=== PATIENT | female | born 1950 | race Caucasian/White ===

== ENCOUNTER → 2016-08-22 | Outpatient (CLI) | payer OTHER, MEDICARE ==
[2016-08-22 13:38] LABS: BLOOD UREA NITROGEN 15 mg/dl (7-18); CALCIUM 8.9 mg/dl (8.5-10.1); CARBON DIOXIDE 24 mmol/L (21-32); CHLORIDE 104 mmol/L (98-107); CREATININE 0.62 mg/dl (0.60-1.20); GLUCOSE 143 mg/dl (70-99); POTASSIUM 3.7 mmol/L (3.5-5.1); SODIUM 139 mmol/L (136-145)
[2016-08-22 13:39] LABS: PHOSPHORUS 3.3 mg/dl (2.5-4.9)
[2016-08-22 14:01] LABS: ESTIMATED AVERAGE GLUCOSE 148 mg/dl; HA1C FLAG Normal (Normal)
== END | disposition home or self-care (01) ==
LOC: C.LABMFLN 08:54
PROVIDERS: ATTEND Family Medicine
DX: E11.9 Type 2 diabetes mellitus without complications (principal)

== ENCOUNTER → 2016-09-05 | Outpatient (CLI) | payer OTHER, MEDICARE | END | disposition home or self-care (01) | LOC: C.LABMFLN 08:23 | PROVIDERS: ATTEND Family Medicine | DX: R82.90 Unspecified abnormal findings in urine (principal) ==

== ENCOUNTER → 2016-10-31 | Outpatient (CLI) | payer OTHER, MEDICARE | END | disposition home or self-care (01) | LOC: C.LABSPEC 12:11 | PROVIDERS: ATTEND Obstetrics & Gynecology | DX: N76.0 Acute vaginitis (principal) ==

== ENCOUNTER → 2017-01-02 | Outpatient (CLI) | payer OTHER, MEDICARE ==
[2017-01-02 13:35] LABS: ALT/SGPT 29 U/L (12-78); BLOOD UREA NITROGEN 15 mg/dl (7-18); CALCIUM 8.9 mg/dl (8.5-10.1); CARBON DIOXIDE 23 mmol/L (21-32); CHLORIDE 108 mmol/L (98-107); CHOLESTEROL 160 mg/dl (0-200); CREATININE 0.69 mg/dl (0.60-1.20); GLUCOSE 153 mg/dl (70-99); POTASSIUM 3.8 mmol/L (3.5-5.1); SODIUM 139 mmol/L (136-145); TRIGLYCERIDES 202 mg/dl (0-150); VERY LOW DENSITY LIPOPROT CALC 40 mg/dl
[2017-01-02 13:39] LABS: ALB/GLOB RATIO 1.1 (0.9-2); ALKALINE PHOSPHATASE 83 U/L (45-117); AST/SGOT 16 U/L (15-37); CHOLESTEROL/HDL RATIO 3.1; HDL CHOLESTEROL 51 mg/dl; LDL CHOLESTEROL CALCULATED 69 mg/dl
[2017-01-02 13:52] LABS: ESTIMATED AVERAGE GLUCOSE 171 mg/dl; HA1C FLAG Normal (Normal)
[2017-01-02 13:58] LABS: RATIO 12.7 mcg/mg (0-30.0)
== END | disposition home or self-care (01) ==
LOC: C.LABMFLN 08:46
PROVIDERS: ATTEND Family Medicine
DX: E11.9 Type 2 diabetes mellitus without complications (principal); E78.5 Hyperlipidemia, unspecified

== ENCOUNTER → 2017-01-03 | Outpatient (CLI) | payer OTHER, MEDICARE | END | disposition home or self-care (01) | LOC: C.LABSPEC 17:54 | PROVIDERS: ATTEND Physician Assistant | DX: N76.0 Acute vaginitis (principal) ==

== ENCOUNTER → 2017-01-24 | Outpatient (CLI) | payer OTHER, MEDICARE | END | disposition home or self-care (01) | LOC: C.LABMFLN 14:53 | PROVIDERS: ATTEND Family Medicine | DX: R35.0 Frequency of micturition (principal) ==

== ENCOUNTER → 2017-02-06 | Outpatient (CLI) | payer OTHER, MEDICARE ==
[2017-02-06 18:29] LABS: URINE APPEARANCE CLEAR (CLEAR); URINE BILIRUBIN NEG (NEG); URINE COLOR DK YELLOW; URINE EPITHELIAL CELL AUTO >30 /lpf (0-5); URINE NITRITE NEG (NEG); URINE SPECIFIC GRAVITY 1.026 (1.000-1.030); UROBILINOGEN NEG (NEG)
[2017-02-06 18:35] LABS: MANUAL MICROSCOPIC REQUIRED? NO; REVIEW REQ? NO
== END | disposition home or self-care (01) ==
LOC: C.LABSPEC 17:35
PROVIDERS: ATTEND Obstetrics & Gynecology
DX: R35.0 Frequency of micturition (principal); N76.0 Acute vaginitis

== ENCOUNTER → 2017-02-06 | Outpatient (CLI) | payer OTHER, MEDICARE | END | disposition home or self-care (01) | LOC: C.PATHSPEC 17:50 | PROVIDERS: ATTEND Obstetrics & Gynecology | DX: N76.0 Acute vaginitis (principal) ==

== ENCOUNTER → 2017-04-22 | Outpatient (CLI) | payer OTHER, MEDICARE ==
[2017-04-22 18:18] LABS: ESTIMATED AVERAGE GLUCOSE 148 mg/dl; HA1C FLAG Normal (Normal)
[2017-04-22 18:26] LABS: BLOOD UREA NITROGEN 21 mg/dl (7-18); BUN/CREATININE RATIO 28.2 (10-20); CALCIUM 9.5 mg/dl (8.5-10.1); CARBON DIOXIDE 27 mmol/L (21-32); CHLORIDE 105 mmol/L (98-107); CREATININE 0.74 mg/dl (0.60-1.20); GLUCOSE 157 mg/dl (70-99); POTASSIUM 4.1 mmol/L (3.5-5.1); SODIUM 138 mmol/L (136-145)
[2017-04-22 18:37] LABS: PHOSPHORUS 3.1 mg/dl (2.5-4.9)
[2017-04-22 18:39] LABS: BASO % 0.4 %; BASO ABS # 0.05 K/uL (0-0.2); COMPLETE YES; HEMATOCRIT 44.7 % (37-47); IG% 0.5 %; LYMPH % 23.5 %; LYMPH ABS # 3.06 K/uL (1.2-3.4); MEAN CELL VOLUME 87.1 fL (80-100); MEAN CORPUSCULAR HEMOGLOBIN 29.4 pg (25-34); MEAN CORPUSCULAR HGB CONC 33.8 g/dl (32-36); MEAN PLATELET VOLUME 10.7 fL (7.4-10.4); MONO % 6.7 %; NEUT % 67.9 %; PLATELET COUNT 230 K/uL (130-400); RED BLOOD COUNT 5.13 M/uL (4.2-5.4); WHITE BLOOD COUNT 13.04 K/uL (4.8-10.8)
--- NOTE | 2017-04-29 13:28 | CODING QUERY MEDICAL NECESSITY ---
SUPPORTING DIAGNOSIS NEEDED A supporting diagnosis is required for the test/procedure performed on this patient in order for us to be reimbursed by the patient's insurance. Please provide a supporting diagnosis for the following test/procedure listed below next to the test name along with your signature. *If there is no additional diagnosis for this patient that would support the following test/procedure please document that below next to the test/procedure. Test(s)/Procedure(s) that require a supporting diagnosis: * VITAMIN B12 DIAGNOSIS: Provider Signature: Date: Thank you Cora Montgomery [facility] [employer] Once completed, please kindly fax back to [phone] For questions please call [phone]
== END | disposition home or self-care (01) ==
LOC: C.LABMFLN 13:06
PROVIDERS: ATTEND Family Medicine
DX: E11.9 Type 2 diabetes mellitus without complications (principal); R53.83 Other fatigue

== ENCOUNTER → 2017-07-26 | Outpatient (CLI) | payer OTHER, MEDICARE ==
[2017-07-26 17:52] LABS: ALBUMIN 3.7 gm/dl (3.4-5.0); BLOOD UREA NITROGEN 16 mg/dl (7-18); CARBON DIOXIDE 27 mmol/L (21-32); CREATININE 0.69 mg/dl (0.60-1.20); GLUCOSE 172 mg/dl (70-99); PHOSPHORUS 3.7 mg/dl (2.5-4.9); POTASSIUM 3.9 mmol/L (3.5-5.1); SODIUM 136 mmol/L (136-145)
[2017-07-27 07:21] LABS: HEMOGLOBIN A1C 7.3 % (4.5-5.6)
== END | disposition home or self-care (01) ==
LOC: C.LABMFLN 11:53
PROVIDERS: ATTEND Family Medicine
DX: E11.9 Type 2 diabetes mellitus without complications (principal); R35.0 Frequency of micturition

== ENCOUNTER → 2017-10-31 | Outpatient (CLI) | payer OTHER, MEDICARE ==
[2017-11-01 06:54] LABS: HEMOGLOBIN A1C 7.2 % (4.5-5.6)
== END | disposition home or self-care (01) ==
LOC: C.LABMFLN 14:59
PROVIDERS: ATTEND Family Medicine
DX: E11.9 Type 2 diabetes mellitus without complications (principal)

== ENCOUNTER → 2018-02-07 | Outpatient (CLI) | payer OTHER, MEDICARE ==
[2018-02-07 18:11] LABS: ALBUMIN 3.6 gm/dl (3.4-5.0); BLOOD UREA NITROGEN 15 mg/dl (7-18); CALCIUM 8.7 mg/dl (8.5-10.1); CARBON DIOXIDE 24 mmol/L (21-32); CHOLESTEROL 118 mg/dl (0-200); CREATININE 0.83 mg/dl (0.60-1.20); GLUCOSE 219 mg/dl (70-99); LDL CHOLESTEROL CALCULATED 22 mg/dl; PHOSPHORUS 3.3 mg/dl (2.5-4.9); POTASSIUM 3.8 mmol/L (3.5-5.1); SODIUM 138 mmol/L (136-145)
[2018-02-08 07:02] LABS: HEMOGLOBIN A1C 7.5 % (4.5-5.6)
== END | disposition home or self-care (01) ==
LOC: C.LABMFLN 11:35
PROVIDERS: ATTEND Family Medicine
DX: E11.9 Type 2 diabetes mellitus without complications (principal); E78.5 Hyperlipidemia, unspecified